=== PATIENT | female | born 1995 | race Caucasian/White ===

== ENCOUNTER 2017-09-26 16:28 | Emergency (ER) | payer OTHER ==
[~2017-09-26] VITALS: Ht 157.5 cm; Wt 53.1 kg
[2017-09-26] MEDS ORDERED: SYMBICORT 80/10.2 GM (16:59)
[2017-09-26] MEDS ORDERED: XOPENEX0.63 MG/3 (16:59)
== END 2017-09-26 21:05 | disposition home or self-care (01) ==
LOC: ER 16:28
DX: S80.01XA Contusion of right knee, initial encounter (principal); W01.0XXA Fall on same level from slipping, tripping and stumbling without subsequent striking against object, initial encounter; Y93.01 Activity, walking, marching and hiking; Y92.89 Other specified places as the place of occurrence of the external cause; Y99.8 Other external cause status